=== PATIENT | male | born 1985 | race American Indian/Alaskan Native ===

== ENCOUNTER 2018-05-21 13:24 | Emergency (ER) | payer OTHER ==
[2018-05-21 13:37] VITALS: RESP 20
--- NOTE | 2018-05-21 13:53 | C.PDOC ---
History Of Present Illness 33 year old male presents to the ED complaining of sore throat, fever, chills, and minimal cough for 3 days. Denies any other complaints. Patient has not received flu vaccination this season. Denies sick contacts or recent travels. Time Seen by Provider: 05/21/18 13:40 Chief Complaint (Nursing): ENT Problem History Per: Patient History/Exam Limitations: no limitations Onset/Duration Of Symptoms: Days (3) Current Symptoms Are (Timing): Still Present Location Of Pain: Throat Associated Symptoms: Fever, Chills, Sore Throat, Cough. denies: Sinus Drainage, Myalgias, Nasal Congestion, Nausea, Vomiting, Diarrhea Ear Symptoms: Bilateral: None Past Medical History Reviewed: Historical Data, Nursing Documentation, Vital Signs Vital Signs: Last Vital Signs Temp 102.7 F H 05/21/18 13:35 Pulse 104 H 05/21/18 13:35 Resp 20 05/21/18 13:35 BP 130/73 05/21/18 13:35 Pulse Ox 97 05/21/18 13:35 - Medical History PMH: No Chronic Diseases Surgical History: No Surg Hx Family History: States: No Known Family Hx - Social History Hx Alcohol Use: No Hx Substance Use: No Review Of Systems Except As Marked, All Systems Reviewed And Found Negative. Constitutional: Positive for: Fever, Chills ENT: Positive for: Throat Pain. Negative for: Ear Pain, Ear Discharge, Nose Discharge, Nose Congestion, Throat Swelling Respiratory: Positive for: Cough. Negative for: Shortness of Breath Gastrointestinal: Negative for: Nausea, Vomiting, Diarrhea Physical Exam - Physical Exam Appears: Non-toxic, No Acute Distress Skin: Warm, Dry, No Rash Head: Normacephalic Eye(s): bilateral: Normal Inspection Nose: Normal Oral Mucosa: Moist Throat: No Erythema, Exudate Neck: Supple Lymphatic: Adenopathy (cervical limphadenopathy ) Chest: Symmetrical Cardiovascular: Rhythm Regular Respiratory: Normal Breath Sounds, No Rales, No Rhonchi, No Wheezing Neurological/Psych: Oriented x3, Normal Speech Gait: Steady ED Course And Treatment O2 Sat by Pulse Oximetry: 97 (RA) Pulse Ox Interpretation: Normal Medical Decision Making Medical Decision Making: Plan - Tylenol 975mg PO - Rapid Strep Group - Influenza A B Stat fever improved. pt in nad. lungs cta speaking full sentences i nad. will treat emprically for influenza. return precautions advied. Disposition - Disposition Referrals: [facility] [Outside] [facility] [Outside] Disposition: HOME/ ROUTINE Disposition Time: 15:00 Condition: STABLE Additional Instructions: return to er with worsening symptoms or concerns. Prescriptions: Oseltamivir Phosphate [Tamiflu] 75 mg PO BID #10 capsule Instructions: Viral Syndrome (DC) Forms: [employer] (South Korean), Work Excuse - Clinical Impression Clinical Impression: Influenza-like illness - Scribe Statement The provider has reviewed the documentation as recorded by the Scribe Elli Gupta All medical record entries made by the Scribe were at my direction and personally dictated by me. I have reviewed the chart and agree that the record accurately reflects my personal performance of the history, physical exam, medical decision making, and the department course for this patient. I have also personally directed, reviewed, and agree with the discharge instructions and disposition.
[2018-05-21 14:34] VITALS: BP 117/67; PULSE 92; TEMP 100.5
[2018-05-21 15:14] LABS: INFLUENZA A B NEGATIVE FOR FLU A/B (NEGATIVE)
[2018-05-21 15:46] VITALS: O2SAT 97
== END 2018-05-21 15:56 | disposition home or self-care (01) ==
LOC: C.ER 13:24
DX: J11.1 Influenza due to unidentified influenza virus with other respiratory manifestations (principal)

== ENCOUNTER 2018-05-21 20:48 | Emergency (ER) | payer OTHER ==
[2018-05-21 21:06] VITALS: BP 131/74; PULSE 98; TEMP 98.4; O2SAT 100
--- NOTE | 2018-05-21 21:48 | C.PDOC ---
History Of Present Illness 33 year old male presents to the ED complaining of persistent subjective fever, chills, sore throat, and cough with blood tinged sputum. Patient was seen here today and treated empirically for the flu. Reports symptoms have not improved. Has not taken Tylenol since he was discharged from the ED. Time Seen by Provider: 05/21/18 21:10 Chief Complaint (Nursing): Fever History Per: Patient History/Exam Limitations: no limitations Onset/Duration Of Symptoms: Days Current Symptoms Are (Timing): Still Present Location Of Pain: Throat Associated Symptoms: Fever, Chills, Sore Throat, Cough, Sputum. denies: Nasal Congestion, Nausea, Vomiting, Diarrhea Ear Symptoms: Bilateral: None Past Medical History Reviewed: Historical Data, Nursing Documentation, Vital Signs Vital Signs: Last Vital Signs Temp 98.4 F 05/21/18 21:01 Pulse 98 H 05/21/18 21:01 Resp 16 05/21/18 21:01 BP 131/74 05/21/18 21:01 Pulse Ox 100 05/21/18 21:01 - Medical History PMH: No Chronic Diseases Surgical History: No Surg Hx Family History: States: No Known Family Hx - Social History Hx Alcohol Use: No Hx Substance Use: No Review Of Systems Constitutional: Positive for: Fever, Chills ENT: Positive for: Throat Pain. Negative for: Ear Pain, Nose Discharge, Nose Congestion Respiratory: Positive for: Cough, Sputum. Negative for: Shortness of Breath Gastrointestinal: Negative for: Nausea, Vomiting, Diarrhea Physical Exam - Physical Exam Appears: Non-toxic, Other (uncomfortable appearing) Skin: Warm, Dry, No Rash Head: Normacephalic Eye(s): bilateral: Normal Inspection Nose: Normal Oral Mucosa: Moist Tongue: Normal Appearing Lips: Normal Appearing Teeth: Normal Dentition Gingiva: Normal Appearing Throat: Erythema, No Exudate, Other (enlarged tonsils ) Neck: Supple Chest: Symmetrical Cardiovascular: Rhythm Regular Respiratory: Normal Breath Sounds, No Decreased Breath Sounds, No Rales, No Rhonchi, No Wheezing Neurological/Psych: Oriented x3, Normal Speech Gait: Steady ED Course And Treatment O2 Sat by Pulse Oximetry: 100 (RA) Pulse Ox Interpretation: Normal Medical Decision Making Medical Decision Making: Plan - CXR - Tylenol 975mg PO - Rapid Strep Group 2227 pt with neg strep, no acute infiltrate noted on cxr. given 4 mg decadron im to help reduce throat swelling. discussed with patient and that viral syndrome may take some time to resolve and will not feel ell for some days and need for follow up with pmd, Disposition Counseled Patient/Family Regarding: Studies Performed, Diagnosis, Need For Followup, Rx Given - Disposition Referrals: Court Turner MD [Staff Provider] - Disposition: HOME/ ROUTINE Disposition Time: 22:36 Condition: GOOD Additional Instructions: Follow up with your doctor or Dr German Reed in 1-2 days. Increase bed rest and increase fluid intake. Tkae Tylenol every 6 hours for pain or fever. Gargle with warm salty water several times a day to help with pain in throat. 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 - Scribe Statement The provider has reviewed the documentation as recorded by the Scribrik Gupta All medical record entries made by the Noemíibrik were at my direction and personally dictated by me. I have reviewed the chart and agree that the record accurately reflects my personal performance of the history, physical exam, medical decision making, and the department course for this patient. I have also personally directed, reviewed, and agree with the discharge instructions and disposition.
[2018-05-21] MEDS ORDERED: Dexamethasone 4 mg/1 ml IM STA (21:51)
[2018-05-21] MEDS ORDERED: Dexamethasone 4 mg/1 ml ONE (21:58)
[2018-05-21 22:59] VITALS: RESP 20
--- NOTE | 2018-05-22 08:27 | RAD ---
Chest x-ray two views History: Blood tinged sputum COMPARISON: None available. Findings: Mild diffuse increased interstitial lung markings. Heart size within normal limits. Impression: Mild diffuse increased interstitial lung markings. If hemoptysis persists, correlation with chest CT is recommended.
== END 2018-05-21 22:58 | disposition home or self-care (01) ==
LOC: C.ER 20:48
DX: J11.1 Influenza due to unidentified influenza virus with other respiratory manifestations (principal)
CPT/HCPCS: 71046; 87070; 87430; 96372; 99284; J1100